=== PATIENT | male | born 1985 | race Native Hawaiian/Other Pacific Islander ===

== ENCOUNTER 2018-08-06 11:52 | Emergency (ER) | payer OTHER ==
[2018-08-06] MEDS: PERCOCET 5MG/325MG TAB PO (13:53)
== END 2018-08-06 15:00 | disposition home or self-care (01) ==
LOC: M ED 11:52
DX: M54.41 Lumbago with sciatica, right side (principal); M54.42 Lumbago with sciatica, left side; Z87.891 Personal history of nicotine dependence
CPT/HCPCS: 72110